=== PATIENT | male | born 1970 | race Two or more races ===

== ENCOUNTER → 2022-02-08 | Outpatient (CLI) | payer OTHER ==
[2022-02-08 10:12] LABS: Basophils # (auto) 0.1 10 ^3/uL (0-0.2); Basophils % (auto) 1.4 % (0.0-2.0); Eosinophils # (auto) 0.1 10 ^3/uL (0-0.8); Eosinophils % (auto) 1.6 % (0.0-7.0); Hematocrit 44.1 % (41.0-53.0); Hemoglobin 15.3 g/dL (13.5-17.5); Lymphocytes # (auto) 2.2 10 ^3/uL (0.4-5.4); Lymphocytes % (auto) 33.8 % (10.0-50.0); Mean Corpuscular Hemoglobin 30.9 pg (28.0-32.0); Mean Corpuscular Hgb Conc. 34.7 g/dL (32.0-36.0); Mean Corpuscular Volume 89.2 fL (80.0-100.0); Monocytes # (auto) 0.6 10 ^3/uL (0-1.3); Monocytes % (auto) 9.4 % (0.0-12.0); Neutrophils # (auto) 3.5 10 ^3/uL (1.6-8.6); Neutrophils % (auto) 53.8 % (37.0-80.0); Nucleated Red Blood Cells % 0.1 %; Red Blood Cells 4.94 10^6/uL (4.5-5.90); Red Cell Distribution Width 14.1 % (11.8-14.3); White Blood Cell 6.5 10^3/uL (4.4-10.8)
[2022-02-08 10:56] LABS: Albumin 3.8 g/dL (3.4-5.0); Calcium 9.1 mg/dL (8.5-10.1); Potassium 3.7 mmol/L (3.5-5.1)
[2022-02-08 10:59] LABS: Bilirubin, Total 0.5 mg/dL (0.2-1.0); CRP High Sensitivity 0.19 mg/dL (< 0.3); Total Protein 7.8 g/dL (6.4-8.2); Uric Acid 6.3 mg/dL (3.5-7.2)
[2022-02-08 11:10] LABS: Thyroid Stimulating Hormone 2.04 uIU/mL (0.358-3.74)
[2022-02-08 12:00] LABS: Hepatitis B Surface Antibody Positive (Negative)
== END | disposition home or self-care (01) ==
LOC: LAB 09:31
PROVIDERS: ATTEND Family Medicine
DX: U09.9 Post COVID-19 condition, unspecified (principal)
CPT/HCPCS: 36415; 80053; 82728; 83036; 83615; 84403; 84443; 84484; 84550; 85025; 85379; 85652; 86141; 86431; 86703; 86704; 86706; 86803